=== PATIENT | female | born 1965 | race Caucasian/White ===

== ENCOUNTER 2022-03-22 23:02 | Observation (INO) ==
--- NOTE | 2022-03-22 23:20 | DR.FB ---
HPI Time Seen Time Seen by Provider: 03/22/22 23:19 PCP Primary Care Physician: TINY MATAMOROS HPI Comment HPI Comment: Started feeling like something is stuck in throat while eating chicken wing; denies chewing bones and does not recall swallowing anything hard; no wheezing or sob; tried drinking fluids without success; cannot cough it up or swallow it down. Complaint Chief Complaint:: PT AMBULATORY IN ED WITH C/O HAVING BONE FROM CHICKEN WING STUCK IN THROAT. DENIES TROUBLE BREATHING. STATES 7/10 PAIN WITH SWALLOWING. STATES SHE HAS UNSUCCESSFULLY TRIED TO DRINK AND SWALLOW IT DOWN OR COUGH IT UP. COVID-19 Coronavirus risk:travel/contact w/high risk person: No Has patient experienced Coronavirus symptoms: No Source History Provided: Patient Mode of Arrival Mode of Arrival: Ambulatory Timing Onset of Chief Complaint: 03/22/22 PMH PMH Past Medical History: Yes Past Medical History: Hypertension, Hypothyroidism and Sleep Apnea Past Surgical History: Yes Surgical History: , [employer] Surgery, Hysterectomy, Ortho Surgery and Other Past Surgical History Comment: x3, RIGHT ANKLE, LUMPECTOMY Family History History of Family Medical Conditions: Yes Family Medical History: Diabetes Mellitus, Cancer, CA, Heart Failure and Hypertension Social History Alcohol Use: None Do you use any recreational Drugs:: No Travel Risk Coronavirus risk:travel/contact w/high risk person: No Has patient experienced Coronavirus symptoms: No Infectious screening Have you traveled outside the country in the last 6 months?: No Isolation: Standard ROS Review of Systems Constitutional: No Symptoms Reported Eyes: No Symptoms Reported Respiratoy: No Symptoms Reported Cardiovascular: No Symptoms Reported Genitourinary: No Symptoms Reported Neurological: No Symptoms Reported Musculoskeletal: No Symptoms Reported Integumentary: No Symptoms Reported Hematologic/Lymphatic: No Symptoms Reported Endocrine: No Symptoms Reported Psychiatric: No Symptoms Reported PE Vital Signs Vitals: Temperature 98.7 F Pulse Rate 87 Respiratory Rate 20 Blood Pressure [Left Arm] 118/66 Blood Pressure 174/78 O2 Sat by Pulse Oximetry 95 General Limitations: No Limitations General Appearance: Alert and In No Apparent Distress Eyes Eye exam: Normal Appearance ENT ENT Exam: Normal Exam Neck Neck Exam: Normal Inspection Chest Chest Inspection: Normal Inspection Respiratory Respiratory Exam: Normal Lung Sounds Bilat Cardiovascular Cardiovascular Exam: Regular Rate and Normal Rhythm Abdominal Exam Abdominal Exam: Normal Inspection, Normal Bowel Sounds and Soft Rectal Rectal Exam: Deferred Genitalia Genitalia: Deferred Neurologic Neurological Exam: Alert and Oriented X3 Psychiatric Psychiatric Exam: Normal Affect and Normal Mood Skin Skin Exam: Warm, Dry, Intact and Normal Color COURSE Consultation Call Returned: 00:17 (Dr Gonzalez accepts admission) ROR XRAY XRAY Interpreted by: Radiologist X-ray Results: c-spine: Linear foreign body anterior to the inferior endplate of C6 within the expected location of the soft a gas. This could indeed represent a retained ingested foreign body. Opioid Opioid Risk Tool Age (Sylvester box if 16-45): No History of Preadolescent Sexual Abuse: No Total: 0 Total Score Risk Category: Low Risk Copyright: Deepak MONSIVAIS predicting aberrant behaviors Discharge Plan Diagnosis Discharge Problem: Esophageal foreign body Discharge Plan Patient Disposition: ADMITTED INPATIENT Condition: Stable Discharge Comment: PT ADMITTED TO ROOM 202
--- NOTE | 2022-03-23 00:03 | RAD ---
HISTORYPT AMBULATORY IN ED WITH C/O HAVING BONE FROM CHICKEN WING STUCK IN THROAT. DENIES TROUBLE BREATHING. STATES 7/10 PAIN WITH SWALLOWING. HTN, HYPOTHYROIDISM, SLEEP APNEA SX: CSECTION, HYST, RIGHT ANKLESTUDYCERVICAL SPINE, AP/LATCOMPARISONNone.FINDINGSThe prevertebral soft tissues are unremarkable in their appearance. There is a tiny faint linear CT calcification anterior to the inferior endplate of C6 within the expected location of the esophagus. This could represent I retained foreign body. The hypopharynx and distal airway appear unremarkable. The bony cervical spine is grossly unremarkable.IMPRESSIONLinear foreign body anterior to the inferior endplate of C6 within the expected location of the soft a gas. This could indeed represent a retained ingested foreign body.Electronically signed by: Marine Pate (Mar 23, 2022 00:01:48)
[2022-03-23] MEDS ORDERED: ATIVAN INJ 2 MG VIAL IVP PRN (00:13)
[2022-03-23] MEDS ORDERED: PROTONIX INJ 40 MG VIAL ONE (00:29)
[2022-03-23] MEDS: PROTONIX INJ 40 MG VIAL IVP SCH ×2 (00:35→08:37)
[2022-03-23 01:37] VITALS: BMI 39.3
[2022-03-23 01:39] LABS: BASOPHILS # (AUTO) 0.1 X10^3/uL (0.0-0.1); BASOPHILS % (AUTO) 0.5 % (0.2-1.0); EOSINOPHILS % (AUTO) 0.3 % (0.9-2.9); HEMATOCRIT 35.2 % (36.0-47.0); HEMOGLOBIN 11.8 g/dL (12.0-16.0); LYMPHOCYTES # (AUTO) 1.7 X10^3/uL (1.3-2.9); LYMPHOCYTES % (AUTO) 13.1 % (21.0-51.0); MEAN CORPUSCULAR HEMOGLOBIN 28.8 pg (27.0-34.0); MEAN CORPUSCULAR HGB CONC 33.4 g/dL (33.0-35.0); MEAN CORPUSCULAR VOLUME 86.3 fL (80.0-100.0); MEAN PLATELET VOLUME 9.5 fL (7.4-11.0); MONOCYTES # (AUTO) 0.5 x10^3/uL (0.3-0.8); NEUTROPHILS # (AUTO) 10.6 x10^3/uL (2.2-4.8); NEUTROPHILS % (AUTO) 82.1 % (42.0-75.0); RED BLOOD COUNT 4.08 X10^6/uL (3.5-5.4); RED CELL DISTRIBUTION WIDTH 14.6 % (11.6-16.5)
[2022-03-23 01:47] LABS: ALANINE AMINOTRANSFERASE 10 Units/L (12-78); ALBUMIN 3.7 g/dL (3.4-5.0); ALKALINE PHOSPHATASE 95 Units/L (46-116); ASPARTATE AMINO TRANSFERASE 18 Units/L (15-37); BLOOD UREA NITROGEN 17 mg/dL (7-18); CALCIUM 9.6 mg/dL (8.5-10.1); CARBON DIOXIDE 26.2 mmol/L (21-32); CHLORIDE 100 mmol/L (98-107); CREATININE 1.19 mg/dL (0.55-1.02); SODIUM 137 mmol/L (136-145); TOTAL PROTEIN 7.8 g/dL (6.4-8.2); eGFR NON BLACK RACES 50 (>60)
[2022-03-23] MEDS ORDERED: ZOFRAN INJ 4 MG VIAL IVP PRN (07:14)
[2022-03-23] MEDS ORDERED: ZOFRAN INJ 4 MG VIAL ONE (07:15)
[2022-03-23] MEDS ORDERED: VALIUM INJ IVP ONE (09:05)
[2022-03-23] MEDS ORDERED: DIPRIVAN VIAL 20 ML ONE (09:13)
[2022-03-23] MEDS ORDERED: NS 500 ML IV 500 ML IV ONE (09:28)
[2022-03-23] MEDS ORDERED: VERSED ONE (09:35)
[2022-03-23] MEDS ORDERED: XYLOCAINE 2 % (PLAIN) ONE (09:43)
[2022-03-23 12:08] VITALS: BP 132/60
== END 2022-03-23 13:20 | disposition home or self-care (01) ==
LOC: MED/SURG 23:02 → ER 23:02 → MED/SURG 03-23 00:56
PROVIDERS: ADMIT Surgery; ATTEND Surgery
DX: T18.128A Food in esophagus causing other injury, initial encounter; I10 Essential (primary) hypertension; Z20.822 Contact with and (suspected) exposure to COVID-19; K44.9 Diaphragmatic hernia without obstruction or gangrene; E03.8 Other specified hypothyroidism; X58.XXXA Exposure to other specified factors, initial encounter; R13.11 Dysphagia, oral phase; Y92.9 Unspecified place or not applicable